=== PATIENT | male | born 1985 | race Caucasian/White ===

== ENCOUNTER 2016-08-26 04:24 | Emergency (ER) | payer SELFPAY ==
[~2016-08-26] VITALS: Ht 162.6 cm; Wt 77.3 kg
[2016-08-26 04:28] VITALS: Ht 162.6 cm; Wt 77.3 kg
[2016-08-26] MEDS ORDERED: SOD CHLORIDE 0.9% 1,000 ML IV STA (04:32)
--- NOTE | 2016-08-26 04:42 | ERD ---
ER Documentation Chief Complaint Date/Time DATE: 08/26/16 TIME: 04:40 Chief Complaint anxiety,ETOH/marijuana/cocaine use HPI This is a 31-year-old male presents to the emergency room for evaluation of anxiety after using alcohol, marijuana, and cocaine. This patient's girlfriend was with him and stated that the patient started to become very anxious so she called 911. The patient is denying any chest pain palpitations, he does say he is cocaine for the first time tonight and states he is feeling mildly anxious. The patient is denying any shortness of breath at this time. ROS All systems reviewed and are negative except as per history of present illness. Allergies Allergies: Coded Allergies: No Known Allergy (Unverified , 08/26/16) Physical Exam Vitals Vital Signs Date Time Temp Pulse Resp B/P Pulse Ox O2 Delivery O2 Flow Rate FiO2 08/26/16 04:28 98.1 101 18 129/71 98 Physical Exam Const: Restless in bed, no acute distress Head: Atraumatic Eyes: Normal Conjunctiva ENT: Normal External Ears, Nose and Mouth. Neck: Full range of motion..~ No meningismus. Resp: Clear to auscultation bilaterally Cardio: Regular rate and rhythm, no murmurs Abd: Soft, non tender, non distended. Normal bowel sounds Skin: No petechiae or rashes Back: No midline or flank tenderness Ext: No cyanosis, or edema Neur: Awake and alert Psych: Anxious affect Results 24 hrs Current Medications Medications (Trade) Dose Ordered Sig/Hunter Route PRN Reason Start Time Stop Time Status Last Admin Dose Admin Sodium Chloride (NS) 1,000 ml @ 1,000 mls/hr Q1H STAT IV 08/26/16 04:32 08/26/16 04:39 DC Lorazepam (Ativan) 1 mg ONCE ONCE IV 08/26/16 05:00 08/26/16 05:00 DC Procedures/MDM EKG: Rate/Rhythm: [Normal Sinus Rhythm] QRS, ST, T-waves: [No changes consistent w/ acute ischemia] Impression: [No evidence of ischemia or arrhythmia] This 31-year-old male presents to the ER for evaluation of anxiety. This patient was using marijuana, cocaine, and alcohol tonight. This patient is refusing any blood work at this time, he states that he is feeling okay. I talked to him about the toxic effects of cocaine on the heart. The patient has agreed for an EKG. He is also agreed to 1 mg p.o. of Ativan. He is declining all the blood work. The patient is alert and oriented to person place and time. His EKG shows normal sinus rhythm. He is not hypoxic, and is hemodynamically stable he has declined all further blood work and states that he would like to go home. This patient's girlfriend is at bedside and states that she can take him home. He will be discharged at this time Departure Diagnosis: Primary Impression: Anxiety Additional Impressions: Cocaine use Alcohol use Marijuana use Condition: Stable ZOLTAN LUA DO Aug 26, 2016 04:42
[2016-08-26 04:55] VITALS: BP 127/72; PULSE 98; RESP 18; TEMP 98.1
[2016-08-26] MEDS ORDERED: LORAZEPAM 2 MG INJ IV ONE (05:00)
[2016-08-26] MEDS ORDERED: LORAZEPAM 1 MG TAB PO ONE (05:00)
== END 2016-08-26 04:55 | disposition home or self-care (01) ==
LOC: E/R 04:24
DX: F41.9 Anxiety disorder, unspecified (principal); F14.90 Cocaine use, unspecified, uncomplicated; F10.99 Alcohol use, unspecified with unspecified alcohol-induced disorder; F12.90 Cannabis use, unspecified, uncomplicated
CPT/HCPCS: 93005; J7030